=== PATIENT | female | born 1940 | race Caucasian/White ===

== ENCOUNTER 2017-01-02 14:01 | Emergency (ER) | payer OTHER ==
[~2017-01-02] VITALS: Ht 167.6 cm; Wt 70.0 kg
[2017-01-02 14:05] VITALS: Ht 167.6 cm; Wt 70.0 kg
[2017-01-02] MEDS ORDERED: SOD CHLORIDE 0.9% 1,000 ML IV STA ×2 (14:10→16:54)
[2017-01-02] MEDS ORDERED: DILTIAZEM 25 MG INJ IV ONE ×2 (14:30→15:30)
[2017-01-02 14:32] LABS: ADD SCAN DIFF NO
[2017-01-02 14:34] LABS: BASOPHIL # 0.1 10^3/ul (0.0-0.1); BASOPHILS % 0.5 % (0.0-2.0); EOSINOPHILS # 0.2 10^3/ul (0.0-0.5); EOSINOPHILS % 2.1 % (0.0-7.0); HEMATOCRIT 36.6 % (37.0-47.0); HEMOGLOBIN 12.5 g/dl (12.0-16.0); LYMPHOCYTES % 21.5 % (15.0-51.0); MEAN CORPUSCULAR HGB CONC 34.2 g/dl (32.0-37.0); MEAN CORPUSCULAR VOLUME 87.8 fl (82.0-101.0); MEAN PLATELET VOLUME 11.6 fl (7.4-10.4); MONOCYTE # 0.9 10^3/ul (0.3-0.9); MONOCYTES % 9.5 % (0.0-11.0); PLATELET COUNT 200 10^3/UL (140-415); RED BLOOD COUNT 4.17 10^6/ul (4.20-5.40); RED CELL DISTRIBUTION WIDTH 13.7 % (11.5-14.5); WHITE BLOOD COUNT 9.1 10^3/ul (4.8-10.8)
[2017-01-02 14:49] LABS: INR 1.16; PARTIAL THROMBOPLASTIN TIME 31.3 Sec (25.0-35.0); PROTIME 14.8 Sec (12.2-14.2); PT RATIO 1.2
[2017-01-02 14:50] LABS: CALCIUM 8.9 mg/dl (8.4-10.2); CREATININE 2.07 mg/dl (0.44-1.00); POTASSIUM 3.3 mmol/L (3.5-5.1)
[2017-01-02] MEDS ORDERED: POTASSIUM CHLORIDE (SR) 10 MEQ TAB PO ONE (15:00)
[2017-01-02 15:03] LABS: TROPONIN-I 0.02 ng/ml (0.00-0.12)
--- NOTE | 2017-01-02 15:17 | RADRPT ---
PROCEDURE: XR 1 view Chest. CLINICAL INDICATION: Chest pain. TECHNIQUE: Portable Single frontal view of the chest was obtained. COMPARISON: There are no similar studies submitted for comparison. FINDINGS: The heart is normal in size. There are mild aortic calcifications. There is no focal consolidation. There is no pleural effusion. No pneumothorax is identified. The osseous structures are intact. Surgical clips are noted within the right axilla. There is mild t o moderate dextro thoracolumbar scoliosis. IMPRESSION: No evidence for acute cardiopulmonary disease. Aortic calcifications. Further findings as detailed above. RPTAT: PP .Cuong Mitchell MD, Date Time Electronically viewed and signed by .Cuong Mitchell MD, on 01/02/2017 15:17 .F/
[2017-01-02] MEDS ORDERED: VALS1TAB74 PO (15:47)
[2017-01-02] MEDS ORDERED: GABA-526 PO (15:48)
[2017-01-02] MEDS ORDERED: SOD CHLORIDE 0.9% 1,000 ML IV SCH (16:08)
--- NOTE | 2017-01-02 16:17 | ERA ---
ER Documentation Chief Complaint Date/Time DATE: 01/02/17 TIME: 16:13 Chief Complaint NON-TRAUMATIC SYNCOPE THIS AFTERNOON HPI This is a 76-year-old female presents to the emergency room for evaluation of heart palpitations and syncopal episode. The patient states that she was at a restorationist event and states that she woke up and was on the ground. She does not remember fainting. She is complaining of heart palpitations and does state she has a history of atrial fibrillation. The patient denies being on any antiarrhythmic medication and denies being on any blood thinners. She denies any shortness of breath at this time ROS All systems reviewed and are negative except as per history of present illness. Medications Home Meds Reported Medications Gabapentin* (Gabapentin*) 600 Mg Tablet, 600 MG PO BID, #60 TAB 01/02/17 Valsartan-Hydrochlorothiazide (Valsartan-HCTZ) 80-12.5 Mg Tablet, 1 TAB PO DAILY , #30 TAB 01/02/17 Allergies Allergies: Coded Allergies: No Known Allergy (Unverified , 01/02/17) Physical Exam Vitals Vital Signs Date Time Temp Pulse Resp B/P Pulse Ox O2 Delivery O2 Flow Rate FiO2 01/02/17 14:05 97.9 150 20 98/47 94 Physical Exam INITIAL VITAL SIGNS: Reviewed by me GENERAL: The patient is well developed and appropriate for usual state of health in no apparent distress HEENT: Pupils equal, round, and reactive to light. EOMI. There is no scleral icterus. NECK: C-spine is soft and supple, there is no meningismus. There is no cervical lymphadenopathy. LUNGS: Clear to auscultation bilaterally. There are no rales, wheezes or rhonchi. HEART: Irregularly irregular rhythm, no murmurs, clicks, rubs or gallops. ABDOMEN: Soft, non-tender, non-distended. There are bowel sounds in all four quadrants. No rebound or guarding. EXTREMITIES: There is no peripheral cyanosis or edema. No focal swelling or erythema. NEUROLOGICAL: The patient moves all four extremities with 5/5 strength. Cranial nerves II - XII are intact. Normal gait. Alert and oriented SKIN: There is no apparent rash or petechiae. HEME/LYMPHATIC: There is no evidence of excessive bruising or lymphedema. PSYCHIATRIC: The patient does not appear anxious or depressed. Result Diagram: 6/15/17 1420 01/02/17 1420 Results 24 hrs Laboratory Tests Test 01/02/17 14:20 White Blood Count 9.110^3/ul Red Blood Count 4.1710^6/ul Hemoglobin 12.5g/dl Hematocrit 36.6% Mean Corpuscular Volume 87.8fl Mean Corpuscular Hemoglobin 30.0pg Mean Corpuscular Hemoglobin Concent 34.2g/dl Red Cell Distribution Width 13.7% Platelet Count 16844^3/UL Mean Platelet Volume 11.6fl Neutrophils % 66.0% Lymphocytes % 21.5% Monocytes % 9.5% Eosinophils % 2.1% Basophils % 0.5% Nucleated Red Blood Cells % 0.0/100WBC Neutrophils # 6.010^3/ul Lymphocytes # 2.010^3/ul Monocytes # 0.910^3/ul Eosinophils # 0.210^3/ul Basophils # 0.110^3/ul Nucleated Red Blood Cells # 0.010^3/ul Prothrombin Time 14.8Sec Prothrombin Time Ratio 1.2 INR International Normalized Ratio 1.16 Activated Partial Thromboplast Time 31.3Sec Sodium Level 142mmol/L Potassium Level 3.3mmol/L Chloride Level 109mmol/L Carbon Dioxide Level 24mmol/L Anion Gap 12 Blood Urea Nitrogen 26mg/dl Creatinine 2.07mg/dl Glucose Level 168mg/dl Calcium Level 8.9mg/dl Troponin I 0.020ng/ml B-Type Natriuretic Peptide 764PG/ML Current Medications Medications (Trade) Dose Ordered Sig/Minoo Route PRN Reason Start Time Stop Time Status Last Admin Dose Admin Sodium Chloride (NS) 1,000 ml @ 1,000 mls/hr Q1H STAT IV 01/02/17 14:10 01/02/17 15:09 DC 01/02/17 14:41 Diltiazem HCl (Cardizem Iv) 10 mg ONCE ONCE IV 01/02/17 14:30 01/02/17 14:35 DC 01/02/17 14:42 Potassium Chloride (Klor-Con 10) 30 meq ONCE ONCE PO 01/02/17 15:00 01/02/17 15:01 DC Diltiazem HCl 20 mg 20 mg ONCE ONCE IV 01/02/17 15:30 01/02/17 15:31 DC 01/02/17 15:14 Sodium Chloride (NS) 1,000 ml @ 80 mls/hr [id number] IV 01/02/17 16:08 01/03/17 04:37 Ondansetron HCl (Zofran Inj) 4 mg ER BRIDGE PRN IV NAUSEA AND/OR VOMITING 01/02/17 16:30 01/03/17 16:29 Acetaminophen (Tylenol Tab) 650 mg ER BRIDGE PRN PO MILD PAIN/FEVER 01/02/17 16:30 01/03/17 16:29 Procedures/MDM EKG: Rate/Rhythm: A. fib with RVR QRS, ST, T-waves: [No changes consistent w/ acute ischemia] Impression: Atrial fibrillation with rapid ventricular response EKG: #2 Rate/Rhythm: Atrial fibrillation with sinus arrhythmia QRS, ST, T-waves: [No changes consistent w/ acute ischemia] Impression: Atrial fibrillation with sinus arrhythmia Chest X-ray 1V Interpreted by me: Soft Tissue: No acute abnormalities Bones: No acute abnormalities Mediastinum/Cardiac Silhouette/Lungs: [No acute abnormalities] This 76-year-old female presents to the emergency room for evaluation of heart palpitations and syncope. When I evaluated her she did have a heart rate of 150s beats per minute and was in atrial fibrillation with rapid ventricular response. The patient was given 10 mg of Cardizem with no effect on her heart rate whatsoever. Patient was then given 20 mg of Cardizem and the patient did have a decrease in her heart rate to 84 bpm. Her potassium was 3.3 and she did have potassium supplemented with 30 mg once by mouth. Her blood pressure is stable at this time. Her second EKG does show a sinus arrhythmia with a positive cardiac activity consistent with sick sinus syndrome. This patient will be placed in for admission at this time for cardiac evaluation under the care of Dr. Granger. Cardiac Critical Care: Excluding all billable procedures Time: 44 minutes Treatments/Evaluations: Close monitoring for dangerous arrhythmia and cardiovascular collapse, while treating with advance cardiac medications and techniques. Departure Diagnosis: Primary Impression: Atrial fibrillation with rapid ventricular response Additional Impressions: Syncope Sick sinus syndrome Renal insufficiency Condition: Stable MIGUELINA SNIDER DO Jan 02, 2017 16:17
[2017-01-02] MEDS ORDERED: ACETAMINOPHEN 325 MG TAB PO PRN (16:30)
[2017-01-02] MEDS ORDERED: ONDANSETRON 4 MG INJ IV PRN (16:30)
[2017-01-02 17:00] VITALS: BP 139/62; PULSE 66; RESP 18
[2017-01-02] MEDS ORDERED: DILTIAZEM (CD) 120 MG CAP PO SCH (17:00)
[2017-01-02] MEDS ORDERED: DILTIAZEM (CD) 120 MG CAP PO ONE (17:00)
--- NOTE | 2017-01-02 17:00 | CONS ---
Date/Time of Note Date/Time of Note DATE: 01/02/17 TIME: 16:51 Assessment/Plan Assessment/Plan Additional Assessment/Plan Paroxysmal atrial flutter/fibrillation, currently sinus rhythm History of hypertension Acute kidney disease Hypokalemia -Initial ECG does demonstrate evidence of tachyarrhythmia most likely atrial flutter. After IV Cardizem, patient with pauses but converted to sinus rhythm. Currently with sinus rhythm in the 60s on telemetry. Laboratory studies does demonstrate evidence of possible hypovolemia as well as hypokalemia. Patient does admit to being out in the warm weather and is taking a diuretic for antihypertensive. Would hold diuretic at the current time, give IV fluids, supplement potassium to maintain above 4.0. Check echocardiogram. Would start Cardizem p.o. in the interim. Given her age and risk factors, patient would benefit from anticoagulation for thromboembolic protection. Consultation Date/Type/Reason Admit Date/Time Type of Consultation: cv Reason for Consultation Palpitations Hx of Present Illness This is a 76-year-old female with past medical history of atrial fibrillation, hypertension who unfortunately is homeless and living out of her car. Today, patient was at an outdoor event. She tells me was very hot and she was quite sweaty and fatigued. At one point, she became lightheaded and felt like she was going to pass out. She was having palpitations during this episode. She was brought to the emergency room for evaluation. Patient was found to be a tachyarrhythmia and was given IV Cardizem. Patient was noted to have some pauses with IV Cardizem and then did convert to sinus rhythm. She feels much better now. She denies any dizziness or lightheadedness, shortness of breath or chest pain. She denies any exertional chest pain or shortness of breath prior to this episode. She does note she has a history of atrial fibrillation but denies being on any anticoagulants. She tells me she does take a medication for hypertension. 12 point review of systems was performed with all pertinent positives and negatives mentioned above and all else is negative Past Medical History Atrial fibrillation Breast cancer Medical History: hypertension Past Surgical History Mastectomy Family History Significant Family History: no pertinent family hx Social History Alcohol Use: none Smoking Status: Never smoker Drug Use: none Other Social History Lives in her car Exam/Review of Systems Vital Signs Vitals Vital Signs Date Time Temp Pulse Resp B/P Pulse Ox O2 Delivery O2 Flow Rate FiO2 01/02/17 14:05 97.9 150 20 98/47 94 Exam No apparent distress Constitutional: alert, oriented Head: normocephalic Neck: supple Respiratory: clear to auscultation, normal air movement Cardiovascular: other (S1-S2 heard), regular rate and rhythm Gastrointestinal: bowel sounds, non-tender, other (No guarding), soft Extremities: edema (Trace) Results Result Diagram: 01/02/17 1420 01/02/17 1420 Results 24 hrs Laboratory Tests Test 01/02/17 14:20 White Blood Count 9.1 Red Blood Count 4.17 L Hemoglobin 12.5 Hematocrit 36.6 L Mean Corpuscular Volume 87.8 Mean Corpuscular Hemoglobin 30.0 Mean Corpuscular Hemoglobin Concent 34.2 Red Cell Distribution Width 13.7 Platelet Count 200 Mean Platelet Volume 11.6 H Neutrophils % 66.0 Lymphocytes % 21.5 Monocytes % 9.5 Eosinophils % 2.1 Basophils % 0.5 Nucleated Red Blood Cells % 0.0 Neutrophils # 6.0 Lymphocytes # 2.0 Monocytes # 0.9 Eosinophils # 0.2 Basophils # 0.1 Nucleated Red Blood Cells # 0.0 Prothrombin Time 14.8 H Prothrombin Time Ratio 1.2 INR International Normalized Ratio 1.16 Activated Partial Thromboplast Time 31.3 Sodium Level 142 Potassium Level 3.3 L Chloride Level 109 Carbon Dioxide Level 24 Anion Gap 12 Blood Urea Nitrogen 26 H Creatinine 2.07 H Glucose Level 168 Calcium Level 8.9 Troponin I 0.020 B-Type Natriuretic Peptide 764 H Medications Medications Current Medications Sodium Chloride (NS) 1,000 ml @ 80 mls/hr [id number] IV ; Start 01/02/17 at 16:08 ; Stop 01/03/17 at 04:37 Procedures Procedures Initial ECG demonstrates atrial fibrillation/flutter with rapid ventricular rates, nonspecific STT wave abnormalities Current ECG demonstrates sinus rhythm, normal QRS duration, nonspecific STT wave abnormalities Farhan Walters DO Jan 02, 2017 17:00
[2017-01-02] MEDS ORDERED: DILT240C79 PO (17:51)
[2017-01-03] MEDS ORDERED: DILT120C77 PO (14:26)
[2017-01-03] MEDS ORDERED: APIX5TAB PO (14:26)
== END 2017-01-02 18:33 | disposition left against medical advice (07) ==
LOC: E/R 14:01
DX: I48.91 Unspecified atrial fibrillation (principal); I49.5 Sick sinus syndrome; N28.9 Disorder of kidney and ureter, unspecified
CPT/HCPCS: 71010; 80048; 83735; 83880; 84484; 85025; 85610; 85730; 93005; J7030; 36415; 96374; 96376

== ENCOUNTER 2017-01-02 20:00 | Inpatient (IN) | payer OTHER ==
[~2017-01-02] VITALS: Ht 167.6 cm; Wt 77.3 kg
[~2017-01-02 20:00] MED LIST: DILT240C79 PO; GABA-526 PO; VALS1TAB74 PO
--- NOTE | 2017-01-02 20:40 | ERA ---
ER Documentation Chief Complaint Date/Time DATE: 01/02/17 TIME: 20:37 Chief Complaint palpitations, came in this afternoon HPI This is a 76-year-old female presents to the emergency room for evaluation of palpitations. The patient was evaluated by myself earlier in afternoon and did leave AGAINST MEDICAL ADVICE to fix her car and get her belongings together. The patient has returned. She states her palpitations have improved. The patient was diagnosed with tachybradycardia dysrhythmia and sick sinus syndrome. She was evaluated by cardiology and recommendation was made for the patient to stay in the hospital for evaluation however she left AGAINST MEDICAL ADVICE and now returns. No new complaints at this time ROS All systems reviewed and are negative except as per history of present illness. Medications Home Meds Active Scripts Diltiazem Hcl* (Cardizem CD*) 240 Mg Cap.sr.24h, 120 MG PO DAILY, #15 CAP Prov:MIGUELINA SNIDER 01/02/17 Reported Medications Gabapentin* (Gabapentin*) 600 Mg Tablet, 600 MG PO BID, #60 TAB 01/02/17 Valsartan-Hydrochlorothiazide (Valsartan-HCTZ) 80-12.5 Mg Tablet, 1 TAB PO DAILY , #30 TAB 01/02/17 Allergies Allergies: Coded Allergies: No Known Allergy (Unverified , 01/02/17) PMhx/Soc History of Surgery: Yes Anesthesia Reaction: No Hx Neurological Disorder: No Hx Respiratory Disorders: No Hx Cardiac Disorders: Yes (dysrthmia) Hx Psychiatric Problems: No Hx Miscellaneous Medical Probl: No Hx Alcohol Use: No Hx Substance Use: No Hx Tobacco Use: No Physical Exam Vitals Vital Signs Date Time Temp Pulse Resp B/P Pulse Ox O2 Delivery O2 Flow Rate FiO2 01/02/17 20:42 99.0 17 123/61 95 Room Air 01/02/17 20:25 99.5 76 20 117/56 95 Physical Exam INITIAL VITAL SIGNS: Reviewed by me GENERAL: The patient is well developed and appropriate for usual state of health in no apparent distress HEENT: Pupils equal, round, and reactive to light. EOMI. There is no scleral icterus. NECK: C-spine is soft and supple, there is no meningismus. There is no cervical lymphadenopathy. LUNGS: Clear to auscultation bilaterally. There are no rales, wheezes or rhonchi. HEART: Irregularly irregular rhythm, no murmurs, clicks, rubs or gallops. ABDOMEN: Soft, non-tender, non-distended. There are bowel sounds in all four quadrants. No rebound or guarding. EXTREMITIES: There is no peripheral cyanosis or edema. No focal swelling or erythema. NEUROLOGICAL: The patient moves all four extremities with 5/5 strength. Cranial nerves II - XII are intact. Normal gait. Alert and oriented SKIN: There is no apparent rash or petechiae. HEME/LYMPHATIC: There is no evidence of excessive bruising or lymphedema. PSYCHIATRIC: The patient does not appear anxious or depressed. Procedures/MDM This 76-year-old female persons to the emergency room for evaluation of palpitations. I did evaluate this patient earlier in the afternoon and admitted this patient for A. fib with RVR and tachybradycardia dysrhythmia. The patient was seen by cardiology and the recommendation was made for the patient to stay in the hospital for further evaluation. This patient did leave AGAINST MEDICAL ADVICE because she had to gather her belongings and move her car. She returned again today for admission after moving her car and gathering her belongings. EKG does not show A. fib with RVR at this time however given her diagnosis of tachybradycardia dysrhythmia this patient will be placed in for admission under regal physician, Dr. Pappas. EKG: Rate/Rhythm: [Normal Sinus Rhythm] QRS, ST, T-waves: [No changes consistent w/ acute ischemia] Impression: [No evidence of ischemia or arrhythmia] Departure Diagnosis: Primary Impression: Palpitations Additional Impression: Tachy-farzaneh syndrome Condition: MIGUELINA Gandhi DO Jan 02, 2017 20:40
[2017-01-02] MEDS ORDERED: ONDANSETRON 4 MG INJ IV PRN (21:00)
[2017-01-02] MEDS ORDERED: ACETAMINOPHEN 325 MG TAB PO PRN (21:00)
[2017-01-02 22:29] VITALS: TEMP 98.6
[2017-01-02 23:56] VITALS: PULSE 66
[2017-01-03] VITALS (9 sets, daily range): BP systolic 120–163; BP diastolic 52–82; PULSE 56–67; RESP 16–19; Ht 167.6 cm; Wt 77.3 kg
[2017-01-03] MEDS ORDERED: ONDANSETRON 4 MG INJ IV PRN (01:00)
[2017-01-03] MEDS ORDERED: ZOLPIDEM 5 MG TAB PO PRN (01:00)
[2017-01-03] MEDS ORDERED: ACETAMINOPHEN 325 MG TAB PO PRN (01:00)
[2017-01-03] MEDS ORDERED: POTASSIUM CHLORIDE 250 ML IVPB ONE (01:30)
[2017-01-03] MEDS ORDERED: POTASSIUM CHLORIDE (SR) 20 MEQ TAB PO ONE (01:30)
[2017-01-03 07:07] LABS: ADD SCAN DIFF NO
[2017-01-03 07:27] LABS: BASOPHILS % 0.5 % (0.0-2.0); EOSINOPHILS # 0.4 10^3/ul (0.0-0.5); EOSINOPHILS % 4.2 % (0.0-7.0); HEMATOCRIT 35.1 % (37.0-47.0); HEMOGLOBIN 11.3 g/dl (12.0-16.0); LYMPHOCYTES # 2.2 10^3/ul (0.8-2.9); MEAN CORPUSCULAR HEMOGLOBIN 29.8 pg (29.0-33.0); MEAN CORPUSCULAR HGB CONC 32.2 g/dl (32.0-37.0); MEAN CORPUSCULAR VOLUME 92.6 fl (82.0-101.0); MEAN PLATELET VOLUME 11.6 fl (7.4-10.4); MONOCYTE # 0.9 10^3/ul (0.3-0.9); NEUTROPHIL # 5.1 10^3/ul (1.6-7.5); NEUTROPHILS % 58.8 % (39.0-77.0); PLATELET COUNT 144 10^3/UL (140-415); RED BLOOD COUNT 3.79 10^6/ul (4.20-5.40); RED CELL DISTRIBUTION WIDTH 14.3 % (11.5-14.5); WHITE BLOOD COUNT 8.6 10^3/ul (4.8-10.8)
[2017-01-03 08:04] LABS: ALBUMIN 3.3 g/dl (3.3-4.9); ALBUMIN/GLOBULIN RATIO 1.43; CALCIUM 8.6 mg/dl (8.4-10.2); CHOL/HDL RATIO 2.5 RATIO; CREATININE 1.26 mg/dl (0.44-1.00); MAGNESIUM 1.9 mg/dl (1.7-2.5); POTASSIUM 4.5 mmol/L (3.5-5.1); TOTAL PROTEIN 5.6 g/dl (6.1-8.1)
[2017-01-03] MEDS ORDERED: ASPIRIN 81 MG TAB PO SCH (09:00)
[2017-01-03] MEDS ORDERED: DILTIAZEM (CD) 240 MG CAP PO SCH (09:00)
[2017-01-03] MEDS: GABAPENTIN 300 MG CAP PO SCH ×2 (09:36→20:32)
[2017-01-03] MEDS ORDERED: MAGNESIUM SULFATE 1 GM/D5W 100 ML IVPB ONE (10:00)
--- NOTE | 2017-01-03 13:33 | RADRPT ---
Echocardiogram Report Patient Name: WOLFGANG LAUGHLIN Gender: Female Date: 1940 Study Date: 03-Jan-2017 [employer] Teacher: Viji Wilks [facility] Location: [facility] Ref. Physician: TEZ XAVIER Quality: Good Procedures: Transthoracic echocardiogram with complete 2D, M-Mode, and doppler examination. Indications: Tachycardia. 2D/M Mode Doppler Measurement Value Normal Ranges Measurement Value Normal Ranges LVIDd 2D 4.3 3.5 - 5.6 cm AV Peak Artur 1.2 m/sec LVIDs 2D 2.5 2.1 - 4.1 cm AV Peak PG 6.0 mmHg FS 2D 42.4 % LVOT Peak Artur 0.9 m/sec LVPWd 2D 1.3 0.6 - 1.1 cm LVOT Peak PG 3.0 mmHg IVSd 2D 1.4 0.6 - 1.1 cm MV E Peak Artur 1.0 m/sec IVS/LVPW 2D 1.1 MV A Peak Artur 0.5 m/sec AoR Diam 2D 3.1 2.0 - 3.7 cm MV E/A 2.1 LA/Ao 2D 1 0 - 1 MV Decel Time 243 msec EDV 2D 80.6 cm3 MV E/A 2.1 ESV 2D 15.4 cm3 TR Peak Artur 2.3 m/sec LA Dimen 2D 3.9 2.3 - 4.0 cm TR Peak PG 21.0 mmHg RVSP 24.0 mmHg Findings Left Ventricle: Normal left ventricular systolic function. Normal left ventricular cavity size. Moderate concentric left ventricular hypertrophy. Ejection fraction is visually estimated at 65 %. Abnormal Diastolic Function. Right Ventricle: Normal right ventricular size. Normal right ventricular systolic function. Left Atrium: There is mild enlargement of left atrium. Right Atrium: The right atrium is normal in size. Mitral Valve: Mitral valve leaflets appear mildly thickened. Mild mitral annular calcification. Mild mitral valve regurgitation. Aortic Valve: Normal appearance of the aortic valve. No significant aortic stenosis or insufficiency. Tricuspid Valve: Normal appearance of the tricuspid valve. Estimated peak PA systolic pressure 24 mmHg. There is trace tricuspid regurgitation. Pulmonic Valve: Normal pulmonic valve appearance. Pericardium: Trivial pericardial effusion. Aorta: Normal aortic root. IVC: Normal size and normal respiratory collapse consistent with normal right atrial pressure. Conclusions Normal left ventricular systolic function. Normal left ventricular cavity size. Moderate concentric left ventricular hypertrophy. Ejection fraction is visually estimated at 65 %. Abnormal Diastolic Function. Normal right ventricular size. Normal right ventricular systolic function. There is mild enlargement of left atrium. The right atrium is normal in size. Mild mitral valve regurgitation. No significant valvular stenosis or regurgitation seen of remaining visualized valves. Trivial pericardial effusion. Electronically Signed By: Farhan Walters 03-Jan-2017 13:32:15 -0700 Patient Name: WOLFGANG LAUGHLIN Study Date: 03-Jan-2017 [id number]
--- NOTE | 2017-01-03 13:39 | CONS ---
Date/Time of Note Date/Time of Note DATE: 01/03/17 TIME: 13:36 Assessment/Plan Assessment/Plan Additional Assessment/Plan Of note, patient left AMA yesterday and came back, refer to previous visit for initial consult note Paroxysmal atrial flutter/fibrillation, currently sinus rhythm History of hypertension [place] Preserved ejection fraction Mild mitral valve regurgitation -Patient remains in sinus rhythm. TSH normal. Left ventricular systolic ejection fraction within normal limits with evidence of left ventricular hypertrophy. I did discuss with the patient the increased risk of thromboembolic events in the setting of atrial fibrillation, as well as her risk factors of age, left ventricular hypertrophy and hypertension. Recommendations are for anticoagulation. I did discuss the risks of bleeding and patient understands and agrees. Would continue Cardizem 120 mg daily and start Eliquis. DC planning Consultation Date/Type/Reason Admit Date/Time Jan 02, 2017 at 20:47 Initial Consult Date Type of Consultation: cv 24 HR Interval Summary Free Text/Dictation Patient denies shortness of breath, chest pain, palpitations or dizziness. Feeling much better Exam/Review of Systems Vital Signs Vitals Vital Signs Date Time Temp Pulse Resp B/P Pulse Ox O2 Delivery O2 Flow Rate FiO2 01/03/17 12:33 67 01/03/17 11:25 98.0 19 136/64 97 01/03/17 04:30 Room Air Intake and Output 01/02/17 01/02/17 01/03/17 15:00 23:00 07:00 Intake Total 120 ml Balance 120 ml Exam No apparent distress Constitutional: alert, oriented Head: normocephalic Neck: supple Respiratory: clear to auscultation, normal air movement Cardiovascular: other (S1-S2 heard), regular rate and rhythm Gastrointestinal: bowel sounds, non-tender, soft Extremities: edema (Trace) Results Result Diagram: 01/03/17 0616 01/03/17 0615 Results 24 hrs Laboratory Tests Test 01/03/17 05:20 01/03/17 06:15 01/03/17 06:16 Thyroid Stimulating Hormone (TSH) 0.844 Sodium Level 147 H Potassium Level 4.5 Chloride Level 117 H Carbon Dioxide Level 24 Anion Gap 11 Blood Urea Nitrogen 18 Creatinine 1.26 H Glucose Level 110 # Calcium Level 8.6 Magnesium Level 1.9 Total Bilirubin 0.0 L Direct Bilirubin 0.00 Indirect Bilirubin 0.0 Aspartate Amino Transf (AST/SGOT) 25 Alanine Aminotransferase (ALT/SGPT) 23 Alkaline Phosphatase 43 Total Protein 5.6 L Albumin 3.3 Globulin 2.30 Albumin/Globulin Ratio 1.43 Triglycerides Level 61 Cholesterol Level 119 LDL Cholesterol, Calculated 60 HDL Cholesterol 47 Cholesterol/HDL Ratio 2.5 White Blood Count 8.6 Red Blood Count 3.79 L Hemoglobin 11.3 L Hematocrit 35.1 L Mean Corpuscular Volume 92.6 Mean Corpuscular Hemoglobin 29.8 Mean Corpuscular Hemoglobin Concent 32.2 Red Cell Distribution Width 14.3 Platelet Count 144 # Mean Platelet Volume 11.6 H Neutrophils % 58.8 Lymphocytes % 26.0 Monocytes % 10.0 Eosinophils % 4.2 Basophils % 0.5 Nucleated Red Blood Cells % 0.0 Neutrophils # 5.1 Lymphocytes # 2.2 Monocytes # 0.9 Eosinophils # 0.4 Basophils # 0.0 Nucleated Red Blood Cells # 0.0 Medications Medications Current Medications Diltiazem HCl (Cardizem Cd) 120 mg DAILY PO Last administered on 01/03/17 09: 36; Admin Dose 120 MG; Start 01/03/17 at 09:00 Gabapentin (Neurontin) 600 mg BID PO Last administered on 01/03/17 09:36; Admin Dose 600 MG; Start 01/03/17 at 09:00 Acetaminophen (Tylenol Tab) 650 mg Q6H PRN PO PAIN AND OR ELEVATED TEMP Last administered on 01/03/17 04:49; Admin Dose 650 MG; Start 01/03/17 at 01:00 Ondansetron HCl (Zofran Inj) 4 mg Q6H PRN IV NAUSEA AND/OR VOMITING; Start at 01:00 Zolpidem Tartrate (Ambien) 5 mg HS PRN PO INSOMNIA; Start 01/03/17 at 01:00 Apixaban (Eliquis) 5 mg BID PO ; Start 01/03/17 at 13:30 Farhan Walters DO Jan 03, 2017 13:39
[2017-01-03] MEDS: APIXABAN 5 MG TABLET PO SCH ×2 (13:59→20:32)
--- NOTE | 2017-01-03 14:22 | PDOCDIS ---
Discharge Instructions CONDITION Patient Condition: Stable HOME CARE INSTRUCTIONS: Special Diet: 2 GM NA DIET. ACTIVITY: Activity Restrictions: Slowly Increase Activity FOLLOW UP/APPOINTMENTS Appointments Follow up with PCP in 1 week Follow up with Cardiology in 1 to 2 weeks EVIE ROBERTSON Jan 03, 2017 14:22
[2017-01-03] MEDS ORDERED: DILT120C77 PO (14:26)
[2017-01-03] MEDS ORDERED: APIX5TAB PO (14:26)
--- NOTE | 2017-01-03 16:02 | HP ---
DATE OF ADMISSION: 01/02/2017 ADMITTING PHYSICIAN: Dr. Granger. MANAGER ENTERPRISE CONTENT MANAGEMENT ON THIS ADMISSION: Dr. Walters. CHIEF COMPLAINT ON ADMISSION: Palpitations and syncopal episode. HISTORY OF PRESENT ILLNESS: This is a 76-year-old female with history of chronic atrial fibrillatio n, status post TIA apparently a week ago at [facility], hypertension and previous histo ry of breast cancer. She presented to the emergency department with complaint of palpitations and a syncopal episode. The patient unfortunately has very difficult social situation currently. As of 1 week ago, she became homeless. Apparently for the past few months, she has been struggling in ter ms of income as she lost her job and she has been responsible for her brother who had multiple medic al issues and recently on 12/26/2016, he committed suicide by hanging himself. After that, the randi ent has been having a difficult time. This past week, she was admitted at [facility]. A pparently, she had a stroke from what she is reporting likely a TIA. She was also diagnosed with a trial fibrillation from what she is reporting, but has not been able to take any of her medications. She was admitted at [facility] for 4 days and was discharged approximately 4 days ago. After her discharge, she went to her primary care physician and did tell him the difficult situatio n that has been happening. Apparently, she was very emotional at that time. The primary care physi deisy did call [employer] likely because he was concerned that the patient may harm herself. Patient repor ts that she was held on a 72-hour hold. She has seen a psychiatrist twice during that hold, police department apparently and was finally released after 72 hours. After release, she has been living i n her car basically over the past 48 hours. In the meantime, yesterday, she was at a critical access hospital er where she did receive food and a cane and subsequently had these episodes of heart palpitations a nd reports a syncopal episode at that time. The patient reports that she has not been able to take any of her medication because either she cannot afford them or she was in this situation to fill the prescription. Yesterday, she was seen here at [facility], was found to be in atrial fi brillation and atrial flutter converted with Cardizem after a brief pause. She was evaluated by car diologrony, Dr. Walters and admission was recommended. The patient left AMA because she had to deal wit h her car apparently but did represent in the ER for admission. Upon admission, she remains in sinu s rhythm with Cardizem on board, but she will need to continue. Given the fact that she has been in atrial fibrillation and apparently now she is reporting possibly either TIA or CVA admission 1 week ago at [facility]. She definitely does need anticoagulation. I have checked with her insurance and Eliquis has been approved. Therefore, she will be discharged on Eliquis. I have radha ked to the patient this morning. She denies any chest pain, shortness of breath or palpitations at this time. She is concerned about her discharge due to the fact that again she is homeless at this point. I have told her high school social studies teacher will talk to her and offer her jail placement. If she do es not want jail, we can try to get a prison facility placement, but she is very relucta nt to nursing homes, but from the medical standpoint, she is stable for discharge today. ALLERGIES: NO KNOWN ALLERGIES. PAST MEDICAL HISTORY: 1. History of breast cancer approximately 2 years ago, status post mastectomy. The patient reports that she also received radiation therapy. She had one dose of chemotherapy, had allergic reaction to it and it was discontinued at that time. She cannot remember if she was given tamoxifen afterwar ds but it sounds like she may have been noncompliant at that time. 2. Hypertension. 3. Atrial fibrillation. 4. Possibly recent transient ischemic attack versus cerebrovascular accident. 5. Low back pain with reported disk disease and peripheral neuropathy of previous sciatica. PAST SURGICAL HISTORY: 1. Status post bilateral mastectomy. 2. Status post intussusception surgery as a child. 3. Status post skin tumor removal from her abdomen from her neck area. SOCIAL HISTORY: The patient is currently homeless as of 1 week ago. Prior to that, she was living since 08/2016 from [facility] and she recently lost her brother to suicide a week ago. She does not drink alcohol. She does not smoke tobacco and does not use IV drugs. She did also lose her torsten b in the past 6 months and also lost income. REVIEW OF SYSTEMS: As per HPI. OUTPATIENT MEDICATIONS: 1. Cardizem-CD 120 mg p.o. daily. 2. Valsartan/hydrochlorothiazide 80/12.5 one tab p.o. daily. 3. Gabapentin 600 mg p.o. b.i.d. PHYSICAL EXAMINATION: VITAL SIGNS: Temperature is 98.0, heart rate of 67, sinus rhythm, respiratory rate of 19, blood pre ssure is 136/64. The patient is saturating 97% on room air. GENERAL: She is alert and oriented x4 in no acute distress currently, but very emotional. HEENT: Pupils are equally round and reactive to light. Extraocular muscles are intact. Anicteric sclerae. NECK: No JVD, no thyromegaly noted. HEART: Regular rate and rhythm. No murmur, rubs, or gallops. She is in sinus rhythm. LUNGS: Clear to auscultation bilaterally. ABDOMEN: Soft, nontender, nondistended. Bowel sounds are present. EXTREMITIES: No edema, clubbing or cyanosis. NEUROLOGIC: She is moving all 4 extremities. She is ambulating to the bathroom without assistance or a cane. LABORATORY DATA: White blood cell count is 8.6, hemoglobin 11.3, hematocrit 35.1, platelet count of 144. Chemistry with a sodium of 147, potassium 4.5, chloride 117, bicarbonate 24, BUN 18, creatini ne 1.26, glucose of 110, glucose of 8.6, magnesium 1.9, AST 25, ALT 23, alkaline phosphatase 43, tot al bilirubin 0, total protein 5.6, albumin 3.3, triglycerides 61, cholesterol 119, LDL 60, HDL 47. TSH of 0.844, free T4 of 1.09. INR is 1.16. PT 31.3, PTT 14.8. RADIOLOGICAL DATA: Chest x-ray shows no acute cardiopulmonary disease. EKG and telemetry shows sinus rhythm currently. ASSESSMENT AND PLAN: This is a 76-year-old female with: 1. Chronic atrial fibrillation, status post episode of rapid ventricular rate, now in sinus rhythm. She will be discharged home or to a jail or to a prison facility on Cardizem-CD 120 mg p.o. daily along with Eliquis 5 mg p.o. b.i.d. 2. 2-D echocardiogram is stable. Cardiac enzymes are negative. She needs to follow up with her ca rdiologist in 1 to 2 weeks. 3. Hypertension. She will be maintained on Cardizem-CD, which is the only blood pressure medicatio n she may need. Valsartan/hydrochlorothiazide has been discontinued. 4. Peripheral neuropathy with degenerative disk disease. Continue gabapentin. 5. Prerenal azotemia seems to be resolved at this point. The patient is to stay hydrated. 6. History of breast cancer status post bilateral mastectomy, stable. 7. Prophylaxis. The patient now on Eliquis and she is ambulatory and she is tolerating p.o. very w ell. DISPOSITION: She has been admitted to telemetry overnight. She will be discharged today. Social s ervices have been consulted regarding her homelessness in order to assist with placement in a shelte r. If that fails, she may need to be placed in a prison facility if possible. Dictated By: EVIE NAVAS/DINESH Conf#: [id number] DID#: [id number]
== END 2017-01-03 22:30 | DRG 309 ==
LOC: E/R 20:00 → TEL 20:47 → UNDODISIN 01-03 16:40
PROVIDERS: ADMIT Internal Medicine; ATTEND Internal Medicine
DX: I48.0 Paroxysmal atrial fibrillation (principal); N17.9 Acute kidney failure, unspecified; I49.5 Sick sinus syndrome; G62.9 Polyneuropathy, unspecified; I10 Essential (primary) hypertension; M51.37 Other intervertebral disc degeneration, lumbosacral region; Z90.13 Acquired absence of bilateral breasts and nipples; Z59.0 Homelessness; Z85.3 Personal history of malignant neoplasm of breast
CPT/HCPCS: 80053; 80061; 83735; 84439; 84443; 85025; 93306; J3475; J3480

== ENCOUNTER 2017-01-09 08:39 | Observation (INO) | payer OTHER ==
[~2017-01-09] VITALS: Ht 160 cm; Wt 74.7 kg
[~2017-01-09 08:39] MED LIST changes: +APIX5TAB PO; +DILT120C77 PO; -DILT240C79 PO; -VALS1TAB74 PO
[2017-01-09] MEDS ORDERED: NITROGLYCERIN 2% 1 GM OINT PKT TD STA (08:41)
[2017-01-09 08:56] LABS: ADD SCAN DIFF NO
[2017-01-09] MEDS ORDERED: NITROGLYCERIN (SL) 0.4 MG TAB SL PRN ×2 (09:00→14:00)
[2017-01-09 09:01] LABS: BASOPHIL # 0.1 10^3/ul (0.0-0.1); BASOPHILS % 0.6 % (0.0-2.0); EOSINOPHILS # 0.3 10^3/ul (0.0-0.5); EOSINOPHILS % 3.2 % (0.0-7.0); HEMATOCRIT 40.9 % (37.0-47.0); HEMOGLOBIN 13.9 g/dl (12.0-16.0); LYMPHOCYTES # 1.9 10^3/ul (0.8-2.9); LYMPHOCYTES % 22.4 % (15.0-51.0); MEAN CORPUSCULAR HEMOGLOBIN 30.2 pg (29.0-33.0); MEAN CORPUSCULAR VOLUME 88.9 fl (82.0-101.0); MEAN PLATELET VOLUME 10.6 fl (7.4-10.4); MONOCYTE # 0.9 10^3/ul (0.3-0.9); MONOCYTES % 11.1 % (0.0-11.0); NEUTROPHIL # 5.2 10^3/ul (1.6-7.5); NEUTROPHILS % 62.3 % (39.0-77.0); PLATELET COUNT 223 10^3/UL (140-415); RED CELL DISTRIBUTION WIDTH 13.8 % (11.5-14.5); WHITE BLOOD COUNT 8.4 10^3/ul (4.8-10.8)
[2017-01-09 09:14] LABS: PT RATIO 1.1
[2017-01-09 09:22] LABS: CALCIUM 9.4 mg/dl (8.4-10.2); CREATININE 1.01 mg/dl (0.44-1.00); POTASSIUM 3.9 mmol/L (3.5-5.1)
--- NOTE | 2017-01-09 09:32 | RADRPT ---
PROCEDURE: Chest x-ray CLINICAL INDICATION: Chest pain TECHNIQUE: Chest single view COMPARISON: 01/02/2017 FINDINGS: The heart is normal in size. The pulmonary vessels are normal in caliber. Lung volumes are low with mild right basilar atelectasis. Lungs otherwise clear. Costophrenic angles sharp. Surgical clips in the right axilla. The costophrenic angles are sharp. The visualized bony thorax is unremarkabl e. IMPRESSION: No acute cardiopulmonary disease. Low lung volumes RPTAT: HH .Christiano Vizcarra MD, Date Time Electronically viewed and signed by .Christiano Vizcarra MD, on 01/09/2017 09:32 .W/
[2017-01-09 09:33] LABS: TROPONIN-I 0.016 ng/ml (0.00-0.12)
[2017-01-09 09:34] LABS: CK-MB 1.04 ng/ml (0.0-2.4); TROPONIN-I 0.017 ng/ml (0.00-0.12)
[2017-01-09] MEDS ORDERED: ACETAMINOPHEN 325 MG TAB PO PRN ×2 (10:30→14:00)
[2017-01-09] MEDS ORDERED: ONDANSETRON 4 MG INJ IV PRN ×2 (10:30→14:00)
--- NOTE | 2017-01-09 11:02 | ERA ---
ER Documentation Chief Complaint Date/Time DATE: 01/09/17 TIME: 10:55 Chief Complaint Patient EDWIN with Code STEMI run HPI Patient is a 76-year-old female with hypertension who presents with chest pain. She was brought in by ambulance. She started with chest pain this morning at 6:20 AM was given nitroglycerin. The pain went away and came back at 6:25 AM and she was given nitroglycerin again. The pain went away and came back a third time and she was given nitroglycerin and this time the facility called 911. She was brought in by ambulance and was given aspirin nitroglycerin by paramedics. An EKG from the field showed a possible STEMI and a code STEMI was called from the field at 8:37 AM. She denies chest pain now. She denies shortness of breath. She said the pain was a dull ache across her chest prior to the nitroglycerin. Upon review of old medical records this is the patient's third visit to the ER since January 02, 2017. ROS All systems reviewed and are negative except as per history of present illness. Medications Home Meds Active Scripts Diltiazem Hcl* (Cardizem CD*) 120 Mg Cap.sr.24h, 120 MG PO DAILY for 30 Days, 3 Refills Prov:MARCELOToddMayelaJUANHAYDEE Mike 01/03/17 Apixaban* (Eliquis*) 5 Mg Tablet, 5 MG PO BID for 30 Days, TAB 3 Refills Prov:MARCELOToddMayelaJUANHAYDEE Mike 01/03/17 Reported Medications Gabapentin* (Gabapentin*) 600 Mg Tablet, 600 MG PO BID, #60 TAB 01/02/17 Discontinued Reported Medications Valsartan-Hydrochlorothiazide (Valsartan-HCTZ) 80-12.5 Mg Tablet, 1 TAB PO DAILY , #30 TAB 01/02/17 Discontinued Scripts Diltiazem Hcl* (Cardizem CD*) 240 Mg Cap.sr.24h, 120 MG PO DAILY, #15 CAP Prov:MIGUELINA NSIDER DO 01/02/17 Allergies Allergies: Coded Allergies: No Known Allergy (Unverified , 01/09/17) PMhx/Soc Positive for hypertension History of Surgery: No Anesthesia Reaction: No Hx Neurological Disorder: No Hx Respiratory Disorders: No Hx Cardiac Disorders: No Hx Psychiatric Problems: No Hx Miscellaneous Medical Probl: No Hx Alcohol Use: No Hx Substance Use: No Hx Tobacco Use: No Smoking Status: Never smoker FmHx Family History: coronary disease Physical Exam Vitals Vital Signs Date Time Temp Pulse Resp B/P Pulse Ox O2 Delivery O2 Flow Rate FiO2 01/09/17 10:20 98.7 100 16 166/114 100 Nasal Cannula 3.0 01/09/17 08:45 Nasal Cannula 2.0 01/09/17 08:44 Non Rebreather 5 01/09/17 08:39 98.3 107 20 140/82 100 Physical Exam Const: No acute distress Head: Atraumatic Eyes: Normal Conjunctiva ENT: Normal External Ears, Nose and Mouth. Neck: Full range of motion..~ No meningismus. Resp: Clear to auscultation bilaterally Cardio: Tachycardic rate without murmur Abd: Soft, non tender, non distended. Normal bowel sounds Skin: No petechiae or rashes Back: No midline or flank tenderness Ext: No cyanosis, or edema Neur: Awake and alert Psych: Normal Mood and Affect Result Diagram: 01/09/17 0848 01/09/17 0848 Results 24 hrs Laboratory Tests Test 01/09/17 08:48 White Blood Count 8.410^3/ul Red Blood Count 4.6010^6/ul Hemoglobin 13.9g/dl Hematocrit 40.9% Mean Corpuscular Volume 88.9fl Mean Corpuscular Hemoglobin 30.2pg Mean Corpuscular Hemoglobin Concent 34.0g/dl Red Cell Distribution Width 13.8% Platelet Count 68146^3/UL Mean Platelet Volume 10.6fl Neutrophils % 62.3% Lymphocytes % 22.4% Monocytes % 11.1% Eosinophils % 3.2% Basophils % 0.6% Nucleated Red Blood Cells % 0.0/100WBC Neutrophils # 5.210^3/ul Lymphocytes # 1.910^3/ul Monocytes # 0.910^3/ul Eosinophils # 0.310^3/ul Basophils # 0.110^3/ul Nucleated Red Blood Cells # 0.010^3/ul Prothrombin Time 14.6Sec Prothrombin Time Ratio 1.1 INR International Normalized Ratio 1.14 Activated Partial Thromboplast Time 34.0Sec Sodium Level 143mmol/L Potassium Level 3.9mmol/L Chloride Level 108mmol/L Carbon Dioxide Level 29mmol/L Anion Gap 10 Blood Urea Nitrogen 21mg/dl Creatinine 1.01mg/dl Glucose Level 109mg/dl Calcium Level 9.4mg/dl Creatine Kinase 33IU/L Creatine Kinase Index 3.2 Creatinine Kinase MB (Mass) 1.04ng/ml Troponin I 0.017ng/ml Current Medications Medications (Trade) Dose Ordered Sig/Minoo Route PRN Reason Start Time Stop Time Status Last Admin Dose Admin Nitroglycerin (Nitroglycerin 2% Oint) 1 inch ONCE STAT TD 01/09/17 08:41 01/09/17 08:43 DC 01/09/17 08:56 Nitroglycerin (Nitroglycerin (Sl Tab) 0.4 Mg) 1 tab Q5M UP TO 3 DOSES PRN SL CHEST PAIN 01/09/17 09:00 Ondansetron HCl (Zofran Inj) 4 mg ER BRIDGE PRN IV NAUSEA AND/OR VOMITING 01/09/17 10:30 01/10/17 10:29 Acetaminophen (Tylenol Tab) 650 mg ER BRIDGE PRN PO MILD PAIN/FEVER 01/09/17 10:30 01/10/17 10:29 Procedures/MDM EKG #1 read by me: Rate/Rhythm: Regular rate and rhythm at a normal rate Intervals: Normal Impression: No evidence of ischemia or arrhythmia EKG #2 read by me: Rate/Rhythm: Sinus tachycardia Intervals: Normal Impression: Sinus tachycardia with ST elevation in lead V2 but without reciprocal depressions Chest x-ray negative per radiology. Patient is a 76-year-old female with hypertension who presents with what appears to be tachybradycardia dysrhythmia. A code STEMI was called from the field at 8:37 AM and the patient arrived at 8:[address] Aldrich was called at 8:43 AM and I recheck to Dr. Oropeza 8:44 AM. At 9:15 AM the code STEMI was canceled per Dr. Aldrich after reviewing EKGs. I spoke with Dr. Barrientos who is covering for Dr. Oropeza who will see the patient in consultation. He has been to admit the patient to Dr. Granger as the patient has regal insurance to a telemetry bed. Initial troponin is within normal limits. I doubt pneumonia, pneumothorax, pulmonary embolism, or aortic dissection. Critical Care: Time: 45 minutes excluding all billable procedures. Treatments/Evaluations: Close monitoring and treatment of unstable vital signs, cardiorespiratory, and neurologic status, while maintaining tight balance of fluid, respiratory, and cardiac interventions. Departure Diagnosis: Primary Impression: Tachy-farzaneh syndrome Additional Impression: Chest pain Qualified Code: R07.9 - Chest pain, unspecified type Condition: WISAM Oden MD Jan 09, 2017 11:02
[2017-01-09 11:15] LABS: INR 1.14; PROTIME 14.6 Sec (12.2-14.2)
[2017-01-09 11:26] LABS: PARTIAL THROMBOPLASTIN TIME 33.8 Sec (25.0-35.0)
[2017-01-09] MEDS ORDERED: DOCUSATE SODIUM 100 MG CAP PO PRN (14:00)
[2017-01-09] MEDS ORDERED: MAGNESIUM HYDROXIDE 30ML CUP PO PRN (14:00)
[2017-01-09] MEDS ORDERED: BISACODYL 10 MG SUPP PR PRN (14:00)
[2017-01-09] MEDS ORDERED: NACL 0.9% 3 ML SYG IV SCH (14:00)
--- NOTE | 2017-01-09 15:24 | CONS ---
Date/Time of Note Date/Time of Note DATE: 01/09/17 TIME: 15:22 Assessment/Plan Assessment/Plan Additional Assessment/Plan Tachy-Farzaneh Syndrome Atypical chest pain Paroxysmal aflutter/afib > nsr HTN -Given multiple visits and tachy farzaneh, will add flecanide to keep in nsr -Continue av blockade -On anticoagulation -If fails medical therpay, would consider AV Ablation with PPM vs afib ablation -d/c asa Consultation Date/Type/Reason Admit Date/Time Hx of Present Illness Patient is a 76-year-old female with hypertension who presents with chest pain. She was brought in by ambulance. She started with chest pain this morning at 6:20 AM was given nitroglycerin. The pain went away and came back at 6:25 AM and she was given nitroglycerin again. The pain went away and came back a third time and she was given nitroglycerin and this time the facility called 911. She was brought in by ambulance and was given aspirin nitroglycerin by paramedics. An EKG from the field showed a possible STEMI and a code STEMI was called from the field at 8:37 AM. She denies chest pain now. She denies shortness of breath. She said the pain was a dull ache across her chest prior to the nitroglycerin. Upon review of old medical records this is the patient's third visit to the ER since January 02, 2017. She is currently stable with no acute ischemia by ekg and nromal troponin #1. Social History Smoking Status: Never smoker Exam/Review of Systems Vital Signs Vitals Vital Signs Date Time Temp Pulse Resp B/P Pulse Ox O2 Delivery O2 Flow Rate FiO2 01/09/17 12:32 98.6 97 18 134/101 100 Nasal Cannula 3.0 Results Result Diagram: 01/09/17 0848 01/09/17 0848 Results 24 hrs Laboratory Tests Test 01/09/17 08:48 White Blood Count 8.4 Red Blood Count 4.60 # Hemoglobin 13.9 # Hematocrit 40.9 Mean Corpuscular Volume 88.9 Mean Corpuscular Hemoglobin 30.2 Mean Corpuscular Hemoglobin Concent 34.0 Red Cell Distribution Width 13.8 Platelet Count 223 # Mean Platelet Volume 10.6 H Neutrophils % 62.3 Lymphocytes % 22.4 Monocytes % 11.1 H Eosinophils % 3.2 Basophils % 0.6 Nucleated Red Blood Cells % 0.0 Neutrophils # 5.2 Lymphocytes # 1.9 Monocytes # 0.9 Eosinophils # 0.3 Basophils # 0.1 Nucleated Red Blood Cells # 0.0 Prothrombin Time 14.6 H Prothrombin Time Ratio 1.1 INR International Normalized Ratio 1.14 Activated Partial Thromboplast Time 33.8 Sodium Level 143 Potassium Level 3.9 Chloride Level 108 Carbon Dioxide Level 29 Anion Gap 10 Blood Urea Nitrogen 21 H Creatinine 1.01 H Glucose Level 109 Calcium Level 9.4 Creatine Kinase 33 Creatine Kinase Index 3.2 Creatinine Kinase MB (Mass) 1.04 Troponin I 0.017 Medications Medications Current Medications Ondansetron HCl (Zofran Inj) 4 mg Q6H PRN IV NAUSEA AND/OR VOMITING; Start at 14:00 Aspirin (Aspirin) 81 mg DAILY PO ; Start 01/10/17 at 09:00 Nitroglycerin (Nitroglycerin (Sl Tab) 0.4 Mg) 1 tab Q5M PRN SL CHEST PAIN; Start 01/09/17 at 14:00 Acetaminophen (Tylenol Tab) 650 mg Q6H PRN PO PAIN LEVEL 1-3 OR FEVER; Start at 14:00 Docusate Sodium (Colace) 100 mg Q12H PRN PO CONSTIPATION; Start 01/09/17 at 14: 00 Magnesium Hydroxide (Milk Of Mag) 30 ml DAILY PRN PO CONSTIPATION; Start at 14:00 Bisacodyl (Dulcolax Supp) 10 mg DAILY PRN NC CONSTIPATION; Start 01/09/17 at 14 :00 Famotidine (Pepcid) 20 mg QHS PO ; Start 01/09/17 at 21:00 Apixaban (Eliquis) 5 mg BID PO ; Start 01/09/17 at 21:00 Gabapentin (Neurontin) 600 mg BID PO ; Start 01/09/17 at 21:00 ROSELYN PAYAN MD Jan 09, 2017 15:24
--- NOTE | 2017-01-09 16:18 | HP ---
DATE OF ADMISSION: 01/09/2017 RIGGER: Dr. Barrientos from cardiology. ADMITTING PHYSICIAN: Dr. Robertson CHIEF COMPLAINT ON ADMISSION: Chest pain and arrhythmia. HISTORY OF PRESENT ILLNESS: This is a 76-year-old female with hypertension and also chronic atrial fibrillation who was brought in from detention facility with reported chest pain. The patient is known to my service. She was discharged approximately 1 week ago to detention [facility] for placement. She has known chronic atrial fibrillation. She was placed on Cardizem and als o required Eliquis due to elevated CHADS score. The patient has been in a detention facility, was sent over today due to episode of chest pain. Apparently, the patient required 2 doses of nitr oglycerin with some improvement of her chest pain. EKG on the field showed possible ST elevation my ocardial infarction. Therefore, a code status was called. The patient was brought to the emergency department, she was evaluated by the ER and also by cardiology recreational sports director and the STEMI code was cance led at that time. This patient denies any shortness of breath. She reports a dull aching pain acro ss her chest. She denies nausea, vomiting, dizziness or shortness of breath. She is comfortable cu rrently. Her vital signs are stable except she is noted to have tachybrady syndrome. Her heart rat e has been varying from upper 80s [address] way to 170s. She will be maintained on Eliquis. I have discussed care of this patient with Dr. Barrientos, who was covering for Dr. Walters. He will most likel y put the patient on antiarrhythmic and discontinue the Cardizem at this point. The patient is admi tted to telemetry observation. ALLERGIES: NO KNOWN ALLERGIES. PAST MEDICAL HISTORY: 1. Chronic atrial fibrillation. 2. Hypertension. 3. Possibly recent TIA versus cerebrovascular accident. 4. Chronic low back pain with disk disease and peripheral neuropathy. 5. Reported history of breast cancer approximately 2 years ago, status post mastectomy and also edd motherapy and radiation therapy, it is unclear if the patient was compliant with treatment. PAST SURGICAL HISTORY: 1. Status post bilateral mastectomy. 2. Status post intussusception surgery as a child. 3. Status post skin tumor removal from her abdomen and her neck area. SOCIAL HISTORY: The patient is currently living at detention facility, she has been homeless for the past couple of weeks now. Prior to that she was living from [facility] since 08/2016 an d recently lost her brother to suicide approximately a couple of weeks ago. She denies alcohol use. She denies tobacco or IV drug use. Unfortunately, she also lost her employment 6 months ago and l ost income then. REVIEW OF SYSTEMS: As per HPI. OUTPATIENT MEDICATIONS: 1. Eliquis 5 mg p.o. b.i.d. 2. Cardizem-CD 120 mg p.o. daily. 3. Gabapentin 600 mg p.o. b.i.d. REVIEW OF SYSTEMS: As per HPI. PHYSICAL EXAMINATION: VITAL SIGNS: Temperature 98.6, heart rate of 97, but varies up to 171, respiratory rate of 18, bloo d pressure 134/101. Patient is saturating 100% on 2 to 3 liters nasal cannula. GENERAL: She is alert and oriented x4. She is in no acute distress. Mental status is at baseline. HEENT: Pupils are equally round and reactive to light. Extraocular muscles are intact. Anicteric sclerae. NECK: No JVD, no thyromegaly noted. HEART: Irregularly irregular; again, varies from rate in the 80s to 170. LUNGS: Clear to auscultation bilaterally. ABDOMEN: Soft, nontender, nondistended. Bowel sounds are present. EXTREMITIES: No edema, clubbing or cyanosis. NEUROLOGIC: Grossly intact. LABORATORY DATA: White blood cell count is 8.4, hemoglobin 13.9, hematocrit 40.9, platelet count of 223. Chemistry with a sodium of 143, potassium 3.9, chloride of 108, bicarbonate of 29, BUN 21, cr eatinine 1.01, glucose of 109, total calcium of 9.4. Cardiac enzymes are negative x1 with a troponi n of 0.017, total protein 5.6, albumin 3.3, triglycerides 61, cholesterol 119, HDL 47. This is on t he past admission a week ago. TSH was also normal then on 01/03/2017 at 0.844 and free T4 1.09. IN R is 1.14, PT of 14.6, PTT of 33.8. EKG is showing sinus rhythm; however, the rate is varying from a normal rate of 80s to tachycardia a nd a rate of 170. RADIOLOGICAL DATA: Chest x-ray shows no acute cardiopulmonary disease. ASSESSMENT AND PLAN: This is a 76-year-old female with: 1. Episode of chest pain. Cardiology has evaluated the patient already. This is not an ST elevati on myocardial infarction. At this point, troponin is negative. We will continue to trend the tropo mehnaz, continue Eliquis for now. The patient does have nitro paste in place which may not be necessar y. A 2D echocardiogram was already done last week. No need to repeat it, and patient is being foll owed by cardiology. Further workup will be done as needed. She does have chronic atrial fibrillati on and has currently tachybrady syndrome; therefore antiarrhythmics will be started per cardiology. 2. Chronic atrial fibrillation, currently tachybrady syndrome. Patient to be started on antiarrhyt hmics. I will continue her Eliquis for now. Her TSH, free T4 are within normal limits. That was a lready checked last week. Electrolytes are stable. 3. Hypertension. We will monitor her blood pressure on new medications. 4. Peripheral neuropathy with degenerative disk disease. Continue gabapentin. 5. History of breast cancer status post bilateral mastectomy, stable. 6. Prophylaxis. The patient already on Eliquis and will have her also on Pepcid for gastrointestin al prophylaxis. DISPOSITION: The patient is being admitted to telemetry observation for medication management and r ule out for acute coronary syndrome. Dictated By: EVIE ROBERTSON MD NK/NTS Conf#: [id number] DID#: [id number] CC: EVIE ROBERTSON MD;*End*
[2017-01-09 16:40] LABS: CREATINE KINASE 40 IU/L (23-200)
[2017-01-09 16:53] LABS: CK-MB 1.14 ng/ml (0.0-2.4)
[2017-01-09 16:56] LABS: TROPONIN-I < 0.012 ng/ml (0.00-0.12)
[2017-01-09] MEDS ORDERED: FLECAINIDE 50 MG TAB PO SCH (21:00)
[2017-01-09] MEDS: FAMOTIDINE 20 MG TAB PO SCH (21:31)
[2017-01-09] MEDS: APIXABAN 5 MG TABLET PO SCH (21:31)
[2017-01-09] MEDS: GABAPENTIN 300 MG CAP PO SCH (21:31)
[2017-01-09 21:52] VITALS: TEMP 98.1
[2017-01-09] MEDS ORDERED: AMIODARONE 150MG/D5W BOLUS 100 ML IV ONE (22:00)
[2017-01-09] MEDS ORDERED: AMIODARONE 900 MG in DEXTROSE 5% 482 ML IV SCH (22:10)
[2017-01-09 22:30] VITALS: Ht 160 cm; Wt 74.7 kg
[2017-01-09 22:43] LABS: CK-MB 1.13 ng/ml (0.0-2.4); TROPONIN-I 0.015 ng/ml (0.00-0.12)
[2017-01-10] VITALS (14 sets, daily range): BP systolic 108–187; BP diastolic 50–84; PULSE 54–64; RESP 18
[2017-01-10] MEDS ORDERED: oxyCODONE (CR) 10 MG TAB [oxyCONTIN] PO PRN (03:00)
[2017-01-10] MEDS: DIAZEPAM 5 MG TAB PO PRN ×2 (04:16→23:01)
[2017-01-10] MEDS: AMIODARONE 200 MG TAB PO SCH ×4 (04:17→20:29)
[2017-01-10] MEDS: APIXABAN 5 MG TABLET PO SCH ×2 (08:35→20:29)
[2017-01-10] MEDS: GABAPENTIN 300 MG CAP PO SCH ×2 (08:35→20:25)
[2017-01-10 08:42] LABS: CALCIUM 8.9 mg/dl (8.4-10.2); CREATININE 1.01 mg/dl (0.44-1.00); POTASSIUM 3.7 mmol/L (3.5-5.1)
[2017-01-10] MEDS ORDERED: oxyCODONE (CR) 10 MG TAB [oxyCONTIN] PO SCH (09:00)
[2017-01-10] MEDS ORDERED: ASPIRIN 81 MG TAB PO SCH (09:00)
[2017-01-10] MEDS ORDERED: AMIODARONE 200 MG TAB PO SCH (09:00)
--- NOTE | 2017-01-10 14:27 | PN ---
Date/Time of Note Date/Time of Note DATE: 01/10/17 TIME: 14:23 Assessment/Plan VTE Prophylaxis VTE Prophylaxis Intervention: other (on Eliquis ) Lines/Catheters IV Catheter Type (from Nrs): Saline Lock Urinary Cath still in place: No Assessment/Plan Assessment/Plan 76-year-old female with: 1. Episode of chest pain. CE negative A 2D echocardiogram was already done last week, no need to repeat it per Cardiology No chest pain currently. 2. Chronic atrial fibrillation, currently tachybrady syndrome, with episode of RVR overnight, per Cardio changed to Amiodarone for antiarrhythmics Continue Eliquis TSH, free T4 wnl. Electrolytes stable. 3. Hypertension. Monitor BP. 4. Peripheral neuropathy with degenerative disk disease. Continue gabapentin and also oxycodone added prn overnight. 5. History of breast cancer status post bilateral mastectomy, stable. Prophylaxis. On Eliquis and Pepcid for gastrointestinal prophylaxis. DISPOSITION: Telemetry observation for HR control. Subjective 24 Hr Interval Summary Free Text/Dictation Patient with episode of SVT overnight, back to SR and on Amiodarone Stable in SR and on po amio now Patient feels OK and VSS Exam/Review of Systems Vital Signs Vitals Vital Signs Date Time Temp Pulse Resp B/P Pulse Ox O2 Delivery O2 Flow Rate FiO2 01/10/17 12:20 57 01/10/17 11:46 98.6 18 182/80 94 01/09/17 21:52 Nasal Cannula 3.0 Intake and Output 01/09/17 01/09/17 01/10/17 15:00 23:00 07:00 Intake Total 300 ml Balance 300 ml Exam Constitutional: alert, oriented, well developed Respiratory: clear to auscultation, normal air movement Cardiovascular: nl pulses, regular rate and rhythm Gastrointestinal: non-tender, soft Musculoskeletal: nl extremities to inspection Extremities: normal pulses, other (no edema, clubbing or cyanosis) 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, nl mental status, nl speech, nl strength Results Result Diagram: 01/09/17 0848 01/10/17 0648 Results 24 hrs Laboratory Tests Test 01/09/17 16:10 01/09/17 21:58 01/10/17 06:48 Creatine Kinase 40 30 Creatine Kinase Index 2.9 3.8 Creatinine Kinase MB (Mass) 1.14 1.13 Troponin I < 0.012 0.015 Sodium Level 140 Potassium Level 3.7 Chloride Level 106 Carbon Dioxide Level 27 Anion Gap 11 Blood Urea Nitrogen 22 H Creatinine 1.01 H Glucose Level 89 Calcium Level 8.9 Magnesium Level 2.0 Medications Medications Current Medications Ondansetron HCl (Zofran Inj) 4 mg Q6H PRN IV NAUSEA AND/OR VOMITING; Start at 14:00 Nitroglycerin (Nitroglycerin (Sl Tab) 0.4 Mg) 1 tab Q5M PRN SL CHEST PAIN; Start 01/09/17 at 14:00 Acetaminophen (Tylenol Tab) 650 mg Q6H PRN PO PAIN LEVEL 1-3 OR FEVER Last administered on 01/09/17 21:55; Admin Dose 650 MG; Start 01/09/17 at 14:00 Docusate Sodium (Colace) 100 mg Q12H PRN PO CONSTIPATION; Start 01/09/17 at 14: 00 Magnesium Hydroxide (Milk Of Mag) 30 ml DAILY PRN PO CONSTIPATION; Start at 14:00 Bisacodyl (Dulcolax Supp) 10 mg DAILY PRN [place] CONSTIPATION; Start 01/09/17 at 14 :00 Famotidine (Pepcid) 20 mg QHS PO Last administered on 01/09/17 21:31; Admin Dose 20 MG; Start 01/09/17 at 21:00 Apixaban (Eliquis) 5 mg BID PO Last administered on 01/10/17 08:35; Admin Dose 5 MG; Start 01/09/17 at 21:00 Gabapentin (Neurontin) 600 mg BID PO Last administered on 01/10/17 08:35; Admin Dose 600 MG; Start 01/09/17 at 21:00 Trazodone HCl (Desyrel) 50 mg HS PO Last administered on 01/10/17 04:16; Admin Dose 50 MG; Start 01/10/17 at 21:00 Diazepam (Valium) 5 mg Q12H PRN PO ANXIETY Last administered on 01/10/17 04:16 ; Admin Dose 5 MG; Start 01/10/17 at 03:00 Amiodarone HCl (Cordarone) 400 mg TID PO Last administered on 01/10/17 12:22; Admin Dose 400 MG; Start 01/10/17 at 03:45 Oxycodone HCl (Roxicodone) 10 mg Q8H PRN PO PAIN; Start 01/10/17 at 12:30 EVIE ROBERTSON Jan 10, 2017 14:27
[2017-01-10] MEDS ORDERED: TRIA0.2521 PO (17:05)
[2017-01-10] MEDS ORDERED: TRAZ50TA18 PO (17:05)
[2017-01-10] MEDS ORDERED: thyroxine PO (17:05)
--- NOTE | 2017-01-10 17:36 | PN ---
Date/Time of Note Date/Time of Note DATE: 01/10/17 TIME: 17:27 Assessment/Plan VTE Prophylaxis VTE Prophylaxis Intervention: SCD's Lines/Catheters IV Catheter Type (from Nrsg): Saline Lock Urinary Cath still in place: No Assessment/Plan Chief Complaint/Hosp Course Patient is a 76-year-old female with hypertension who presents with chest pain. She was brought in by ambulance. She started with chest pain this morning at 6:20 AM was given nitroglycerin. The pain went away and came back at 6:25 AM and she was given nitroglycerin again. The pain went away and came back a third time and she was given nitroglycerin and this time the facility called 911. She was brought in by ambulance and was given aspirin nitroglycerin by paramedics. An EKG from the field showed a possible STEMI and a code STEMI was called from the field at 8:37 AM. She denies chest pain now. She denies shortness of breath. She said the pain was a dull ache across her chest prior to the nitroglycerin. Upon review of old medical records this is the patient's third visit to the ER since January 02, 2017. She is currently stable with no acute ischemia by ekg and nromal troponin #1. Problems: Assessment/Plan Tachy-Farzaneh Syndrome Atypical chest pain Paroxysmal aflutter/afib > nsr HTN -Given multiple visits and tachy farzaneh, will add amiodarone -Continue av blockade -On anticoagulation -If fails medical therpay, would consider AV Ablation with PPM vs afib ablation -off asa Subjective 24 Hr Interval Summary Free Text/Dictation The patient with no change Exam/Review of Systems Vital Signs Vitals Vital Signs Date Time Temp Pulse Resp B/P Pulse Ox O2 Delivery O2 Flow Rate FiO2 01/10/17 16:50 54 01/10/17 16:00 97.6 18 112/59 94 01/10/17 14:32 Room Air 01/09/17 21:52 3.0 Intake and Output 01/09/17 01/09/17 01/10/17 15:00 23:00 07:00 Intake Total 300 ml Balance 300 ml Results Result Diagram: 01/09/17 0848 01/10/17 0648 Results 24 hrs Laboratory Tests Test 01/09/17 21:58 01/10/17 06:48 Creatine Kinase 30 Creatine Kinase Index 3.8 Creatinine Kinase MB (Mass) 1.13 Troponin I 0.015 Sodium Level 140 Potassium Level 3.7 Chloride Level 106 Carbon Dioxide Level 27 Anion Gap 11 Blood Urea Nitrogen 22 H Creatinine 1.01 H Glucose Level 89 Calcium Level 8.9 Magnesium Level 2.0 Medications Medications Current Medications Ondansetron HCl (Zofran Inj) 4 mg Q6H PRN IV NAUSEA AND/OR VOMITING; Start at 14:00 Nitroglycerin (Nitroglycerin (Sl Tab) 0.4 Mg) 1 tab Q5M PRN SL CHEST PAIN; Start 01/09/17 at 14:00 Acetaminophen (Tylenol Tab) 650 mg Q6H PRN PO PAIN LEVEL 1-3 OR FEVER Last administered on 01/09/17 21:55; Admin Dose 650 MG; Start 01/09/17 at 14:00 Docusate Sodium (Colace) 100 mg Q12H PRN PO CONSTIPATION; Start 01/09/17 at 14: 00 Magnesium Hydroxide (Milk Of Mag) 30 ml DAILY PRN PO CONSTIPATION; Start at 14:00 Bisacodyl (Dulcolax Supp) 10 mg DAILY PRN [place] CONSTIPATION; Start 01/09/17 at 14 :00 Famotidine (Pepcid) 20 mg QHS PO Last administered on 01/09/17 21:31; Admin Dose 20 MG; Start 01/09/17 at 21:00 Apixaban (Eliquis) 5 mg BID PO Last administered on 01/10/17 08:35; Admin Dose 5 MG; Start 01/09/17 at 21:00 Gabapentin (Neurontin) 600 mg BID PO Last administered on 01/10/17 08:35; Admin Dose 600 MG; Start 01/09/17 at 21:00 Trazodone HCl (Desyrel) 50 mg HS PO Last administered on 01/10/17 04:16; Admin Dose 50 MG; Start 01/10/17 at 21:00 Diazepam (Valium) 5 mg Q12H PRN PO ANXIETY Last administered on 01/10/17 04:16 ; Admin Dose 5 MG; Start 01/10/17 at 03:00 Amiodarone HCl (Cordarone) 400 mg TID PO Last administered on 01/10/17 12:22; Admin Dose 400 MG; Start 01/10/17 at 03:45 Oxycodone HCl (Roxicodone) 10 mg Q8H PRN PO PAIN; Start 01/10/17 at 12:30 ROSELYN PAYAN MD Jan 10, 2017 17:36
[2017-01-10] MEDS: FAMOTIDINE 20 MG TAB PO SCH (20:29)
[2017-01-10] MEDS ORDERED: traZODone 50 MG TAB PO SCH (21:00)
[2017-01-10] MEDS: traZODone 50 MG TAB PO SCH (23:01)
[2017-01-11] VITALS (10 sets, daily range): BP systolic 126–163; BP diastolic 51–72; PULSE 50–65; RESP 18
[2017-01-11] MEDS: LEVOTHYROXINE 50 MCG TAB PO SCH (05:29)
[2017-01-11 07:56] LABS: ADD SCAN DIFF NO
[2017-01-11 08:06] LABS: BASOPHILS % 0.5 % (0.0-2.0); EOSINOPHILS # 0.3 10^3/ul (0.0-0.5); EOSINOPHILS % 3.6 % (0.0-7.0); HEMATOCRIT 40.1 % (37.0-47.0); HEMOGLOBIN 13.1 g/dl (12.0-16.0); LYMPHOCYTES # 1.6 10^3/ul (0.8-2.9); MEAN CORPUSCULAR HEMOGLOBIN 29.6 pg (29.0-33.0); MEAN CORPUSCULAR HGB CONC 32.7 g/dl (32.0-37.0); MEAN CORPUSCULAR VOLUME 90.7 fl (82.0-101.0); MEAN PLATELET VOLUME 10.7 fl (7.4-10.4); MONOCYTE # 0.9 10^3/ul (0.3-0.9); MONOCYTES % 10.8 % (0.0-11.0); NEUTROPHIL # 5.3 10^3/ul (1.6-7.5); NEUTROPHILS % 64.7 % (39.0-77.0); PLATELET COUNT 195 10^3/UL (140-415); RED BLOOD COUNT 4.42 10^6/ul (4.20-5.40); RED CELL DISTRIBUTION WIDTH 13.8 % (11.5-14.5); WHITE BLOOD COUNT 8.1 10^3/ul (4.8-10.8)
[2017-01-11 08:22] LABS: CREATININE 1.16 mg/dl (0.44-1.00); POTASSIUM 3.9 mmol/L (3.5-5.1)
[2017-01-11 08:25] LABS: MAGNESIUM 1.9 mg/dl (1.7-2.5); PHOSPHORUS 4.4 mg/dl (2.5-4.9)
[2017-01-11] MEDS: AMIODARONE 200 MG TAB PO SCH (09:44)
[2017-01-11] MEDS: GABAPENTIN 300 MG CAP PO SCH ×2 (09:44→20:42)
[2017-01-11] MEDS: APIXABAN 5 MG TABLET PO SCH ×2 (09:44→20:42)
[2017-01-11] MEDS: oxyCODONE 5 MG TAB PO PRN ×2 (09:47→17:55)
--- NOTE | 2017-01-11 11:40 | PN ---
Date/Time of Note Date/Time of Note DATE: 01/11/17 TIME: 11:24 Assessment/Plan VTE Prophylaxis VTE Prophylaxis Intervention: SCD's Lines/Catheters IV Catheter Type (from Nrs): Saline Lock Central line still needed: No Urinary Cath still in place: No Assessment/Plan Assessment/Plan 76-year-old female with afib/aflutter improving. 1. Episode of chest pain. CE negative A 2D echocardiogram was already done last week, no need to repeat it per Cardiology No chest pain currently. 2. Chronic atrial fibrillation, currently tachybrady syndrome, with episode of RVR overnight, per Cardio changed to Amiodarone for antiarrhythmics Continue Eliquis TSH, free T4 wnl. Electrolytes stable. 3. Hypertension. Monitor BP. 4. Peripheral neuropathy with degenerative disk disease. Continue gabapentin and also oxycodone added prn overnight. 5. History of breast cancer status post bilateral mastectomy, stable. 6. Depression: restart effexor. Prophylaxis. On Eliquis and Pepcid for gastrointestinal prophylaxis. DISPOSITION: Telemetry observation for HR control. Subjective 24 Hr Interval Summary Free Text/Dictation Complains of being depressed after her brother committed suicide about 2.5 weeks ago. No events overnight. Eyes: no complaints ENT: no complaints Respiratory: no complaints Cardiovascular: no complaints Gastrointestinal: no complaints Genitourinary: no complaints Musculoskeletal: no complaints Skin: no complaints Neurologic: no complaints Endocrine: no complaints Lymphatic: no complaints Psychological: depression Exam/Review of Systems Vital Signs Vitals Vital Signs Date Time Temp Pulse Resp B/P Pulse Ox O2 Delivery O2 Flow Rate FiO2 01/11/17 08:07 54 01/11/17 07:28 97.8 18 134/61 97 01/10/17 14:32 Room Air 01/09/17 21:52 3.0 Intake and Output 01/10/17 01/10/17 01/11/17 15:00 23:00 07:00 Intake Total 720 ml 650 ml Balance 720 ml 650 ml Exam Constitutional: alert, oriented Psych: depression Head: normocephalic Eyes: nl conjunctiva ENMT: nl external ears & nose Neck: supple Respiratory: clear to auscultation Cardiovascular: regular rate and rhythm Gastrointestinal: soft Extremities: normal pulses Results Result Diagram: 01/11/17 0716 01/11/17 0716 Results 24 hrs Laboratory Tests Test 01/11/17 07:16 White Blood Count 8.1 Red Blood Count 4.42 Hemoglobin 13.1 Hematocrit 40.1 Mean Corpuscular Volume 90.7 Mean Corpuscular Hemoglobin 29.6 Mean Corpuscular Hemoglobin Concent 32.7 Red Cell Distribution Width 13.8 Platelet Count 195 Mean Platelet Volume 10.7 H Neutrophils % 64.7 Lymphocytes % 20.0 Monocytes % 10.8 Eosinophils % 3.6 Basophils % 0.5 Nucleated Red Blood Cells % 0.0 Neutrophils # 5.3 Lymphocytes # 1.6 Monocytes # 0.9 Eosinophils # 0.3 Basophils # 0.0 Nucleated Red Blood Cells # 0.0 Sodium Level 139 Potassium Level 3.9 Chloride Level 105 Carbon Dioxide Level 27 Anion Gap 11 Blood Urea Nitrogen 27 H Creatinine 1.16 H Glucose Level 96 Calcium Level 9.0 Phosphorus Level 4.4 Magnesium Level 1.9 Medications Medications Current Medications Ondansetron HCl (Zofran Inj) 4 mg Q6H PRN IV NAUSEA AND/OR VOMITING; Start at 14:00 Nitroglycerin (Nitroglycerin (Sl Tab) 0.4 Mg) 1 tab Q5M PRN SL CHEST PAIN; Start 01/09/17 at 14:00 Acetaminophen (Tylenol Tab) 650 mg Q6H PRN PO PAIN LEVEL 1-3 OR FEVER Last administered on 01/09/17 21:55; Admin Dose 650 MG; Start 01/09/17 at 14:00 Docusate Sodium (Colace) 100 mg Q12H PRN PO CONSTIPATION; Start 01/09/17 at 14: 00 Magnesium Hydroxide (Milk Of Mag) 30 ml DAILY PRN PO CONSTIPATION; Start at 14:00 Bisacodyl (Dulcolax Supp) 10 mg DAILY PRN [place] CONSTIPATION; Start 01/09/17 at 14 :00 Famotidine (Pepcid) 20 mg QHS PO Last administered on 01/10/17 20:29; Admin Dose 20 MG; Start 01/09/17 at 21:00 Apixaban (Eliquis) 5 mg BID PO Last administered on 01/11/17 09:44; Admin Dose 5 MG; Start 01/09/17 at 21:00 Gabapentin (Neurontin) 600 mg BID PO Last administered on 01/11/17 09:44; Admin Dose 600 MG; Start 01/09/17 at 21:00 Diazepam (Valium) 5 mg Q12H PRN PO ANXIETY Last administered on 01/10/17 23:01 ; Admin Dose 5 MG; Start 01/10/17 at 03:00 Amiodarone HCl (Cordarone) 400 mg TID PO Last administered on 01/11/17 09:44; Admin Dose 400 MG; Start 01/10/17 at 03:45 Oxycodone HCl (Roxicodone) 10 mg Q8H PRN PO PAIN Last administered on 09:47; Admin Dose 10 MG; Start 01/10/17 at 12:30 Levothyroxine Sodium (Synthroid) 50 mcg DAILY@06 PO Last administered on 05:29; Admin Dose 50 MCG; Start 01/11/17 at 06:00 Trazodone HCl (Desyrel) 50 mg QHS PO Last administered on 01/10/17 23:01; Admin Dose 50 MG; Start 01/10/17 at 21:00 TEZ XAVIER MD Jan 11, 2017 11:40
--- NOTE | 2017-01-11 11:58 | PN ---
Date/Time of Note Date/Time of Note DATE: 01/11/17 TIME: 11:56 Assessment/Plan VTE Prophylaxis VTE Prophylaxis Intervention: SCD's Lines/Catheters IV Catheter Type (from Nrsg): Saline Lock Urinary Cath still in place: No Assessment/Plan Chief Complaint/Hosp Course Patient is a 76-year-old female with hypertension who presents with chest pain. She was brought in by ambulance. She started with chest pain this morning at 6:20 AM was given nitroglycerin. The pain went away and came back at 6:25 AM and she was given nitroglycerin again. The pain went away and came back a third time and she was given nitroglycerin and this time the facility called 911. She was brought in by ambulance and was given aspirin nitroglycerin by paramedics. An EKG from the field showed a possible STEMI and a code STEMI was called from the field at 8:37 AM. She denies chest pain now. She denies shortness of breath. She said the pain was a dull ache across her chest prior to the nitroglycerin. Upon review of old medical records this is the patient's third visit to the ER since January 02, 2017. She is currently stable with no acute ischemia by ekg and nromal troponin #1. 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 If she is off lexapro, will place her on amio mail messenger contractor to keep in nsr -Continue av blockade -On anticoagulation -If fails medical therpay, would consider AV Ablation with PPM vs afib ablation -off asa Subjective 24 Hr Interval Summary Free Text/Dictation the patient with no change Exam/Review of Systems Vital Signs Vitals Vital Signs Date Time Temp Pulse Resp B/P Pulse Ox O2 Delivery O2 Flow Rate FiO2 01/11/17 11:25 97.7 74 18 127/72 93 01/10/17 14:32 Room Air 01/09/17 21:52 3.0 Intake and Output 01/10/17 01/10/17 01/11/17 15:00 23:00 07:00 Intake Total 720 ml 650 ml Balance 720 ml 650 ml Results Result Diagram: 01/11/17 0716 01/11/17 0716 Results 24 hrs Laboratory Tests Test 01/11/17 07:16 White Blood Count 8.1 Red Blood Count 4.42 Hemoglobin 13.1 Hematocrit 40.1 Mean Corpuscular Volume 90.7 Mean Corpuscular Hemoglobin 29.6 Mean Corpuscular Hemoglobin Concent 32.7 Red Cell Distribution Width 13.8 Platelet Count 195 Mean Platelet Volume 10.7 H Neutrophils % 64.7 Lymphocytes % 20.0 Monocytes % 10.8 Eosinophils % 3.6 Basophils % 0.5 Nucleated Red Blood Cells % 0.0 Neutrophils # 5.3 Lymphocytes # 1.6 Monocytes # 0.9 Eosinophils # 0.3 Basophils # 0.0 Nucleated Red Blood Cells # 0.0 Sodium Level 139 Potassium Level 3.9 Chloride Level 105 Carbon Dioxide Level 27 Anion Gap 11 Blood Urea Nitrogen 27 H Creatinine 1.16 H Glucose Level 96 Calcium Level 9.0 Phosphorus Level 4.4 Magnesium Level 1.9 Medications Medications Current Medications Ondansetron HCl (Zofran Inj) 4 mg Q6H PRN IV NAUSEA AND/OR VOMITING; Start at 14:00 Nitroglycerin (Nitroglycerin (Sl Tab) 0.4 Mg) 1 tab Q5M PRN SL CHEST PAIN; Start 01/09/17 at 14:00 Acetaminophen (Tylenol Tab) 650 mg Q6H PRN PO PAIN LEVEL 1-3 OR FEVER Last administered on 01/09/17 21:55; Admin Dose 650 MG; Start 01/09/17 at 14:00 Docusate Sodium (Colace) 100 mg Q12H PRN PO CONSTIPATION; Start 01/09/17 at 14: 00 Magnesium Hydroxide (Milk Of Mag) 30 ml DAILY PRN PO CONSTIPATION; Start at 14:00 Bisacodyl (Dulcolax Supp) 10 mg DAILY PRN [place] CONSTIPATION; Start 01/09/17 at 14 :00 Famotidine (Pepcid) 20 mg QHS PO Last administered on 01/10/17 20:29; Admin Dose 20 MG; Start 01/09/17 at 21:00 Apixaban (Eliquis) 5 mg BID PO Last administered on 01/11/17 09:44; Admin Dose 5 MG; Start 01/09/17 at 21:00 Gabapentin (Neurontin) 600 mg BID PO Last administered on 01/11/17 09:44; Admin Dose 600 MG; Start 01/09/17 at 21:00 Diazepam (Valium) 5 mg Q12H PRN PO ANXIETY Last administered on 01/10/17 23:01 ; Admin Dose 5 MG; Start 01/10/17 at 03:00 Amiodarone HCl (Cordarone) 400 mg TID PO Last administered on 01/11/17 09:44; Admin Dose 400 MG; Start 01/10/17 at 03:45 Oxycodone HCl (Roxicodone) 10 mg Q8H PRN PO PAIN Last administered on 09:47; Admin Dose 10 MG; Start 01/10/17 at 12:30 Levothyroxine Sodium (Synthroid) 50 mcg DAILY@06 PO Last administered on 05:29; Admin Dose 50 MCG; Start 01/11/17 at 06:00 Trazodone HCl (Desyrel) 50 mg QHS PO Last administered on 01/10/17 23:01; Admin Dose 50 MG; Start 01/10/17 at 21:00 Venlafaxine HCl (Effexor) 150 mg BID PO ; Start 01/11/17 at 13:00 ROSELYN PAYAN MD Jan 11, 2017 11:57
[2017-01-11] MEDS: VENLAFAXINE 75 MG TABLET PO SCH ×2 (14:20→20:42)
[2017-01-11] MEDS: FAMOTIDINE 20 MG TAB PO SCH (20:42)
[2017-01-11] MEDS: traZODone 50 MG TAB PO SCH (20:42)
[2017-01-11] MEDS ORDERED: ALPRAZOLAM 1 MG TAB PO SCH (23:00)
[2017-01-11] MEDS ORDERED: ALPRAZOLAM 0.25 MG TAB PO PRN (23:00)
[2017-01-11] MEDS ORDERED: ALPRAZOLAM 0.25 MG TAB PO SCH (23:00)
[2017-01-11] MEDS ORDERED: ZOLPIDEM 5 MG TAB PO PRN (23:30)
[2017-01-11] MEDS: DILTIAZEM (CD) 120 MG CAP PO SCH (23:51)
[2017-01-12] VITALS (12 sets, daily range): BP systolic 110–166; BP diastolic 68–90; PULSE 62–150; RESP 18
[2017-01-12] MEDS: LEVOTHYROXINE 50 MCG TAB PO SCH (06:08)
[2017-01-12] MEDS ORDERED: DILTIAZEM (CD) 120 MG CAP PO SCH (09:00)
[2017-01-12] MEDS: VENLAFAXINE 75 MG TABLET PO SCH (09:03)
[2017-01-12] MEDS: APIXABAN 5 MG TABLET PO SCH (09:03)
[2017-01-12] MEDS: GABAPENTIN 300 MG CAP PO SCH (09:03)
[2017-01-12] MEDS: DILTIAZEM (CD) 120 MG CAP PO SCH (09:05)
[2017-01-12] MEDS: oxyCODONE 5 MG TAB PO PRN ×2 (09:06→17:45)
[2017-01-12] MEDS ORDERED: AMIODARONE 200 MG TAB PO SCH (12:00)
[2017-01-12] MEDS ORDERED: AMIO200T2 PO (14:57)
[2017-01-12] MEDS ORDERED: VENL75TA PO (14:57)
[2017-01-12] MEDS ORDERED: DOCU-216 PO (14:57)
--- NOTE | 2017-01-12 14:59 | PDOCDIS ---
Discharge Instructions DIAGNOSIS Discharge Diagnosis Atrial fibrillation Atrial flutter CONDITION Patient Condition: Fair HOME CARE INSTRUCTIONS: Diet Instructions: Low Fat /CholesterolSpecial Diet: Cardiac ACTIVITY: Activity Restrictions: Slowly Increase Activity Bathing Restrictions: Shower FOLLOW UP/APPOINTMENTS Follow-up Plan Follow-up with Dr. Padilla in 3-5 days. Follow-up with PCP in 1-2 weeks. TEZ XAVIER MD Jan 12, 2017 14:59
--- NOTE | 2017-01-12 16:55 | CONS ---
DATE OF ADMISSION: 01/09/2017 DATE OF CONSULTATION: 01/12/2017 TYPE OF CONSULTATION: Cardiac Electrophysiology. HISTORY OF PRESENT ILLNESS: Ms. Pinto was admitted approximately a week ago. At that time was fou nd to be in atrial fibrillation with rapid ventricular rate. She again presented with a complaint of chest pain and was found to be in atrial fibrillation with r apid ventricular rate. She was started on amiodarone and converted to sinus rhythm. Currently, she feels much better. CURRENT MEDICATIONS: 1. Amiodarone 200 mg b.i.d. 2. Diltiazem 120 mg daily. 3. Ambien. 4. Hydralazine. 5. Effexor. 6. Synthroid. 7. Trazodone. ____. PHYSICAL EXAMINATION: GENERAL: She is in no distress. VITAL SIGNS: Temperature 98.1, pulse currently 60 range today from 125 to 42. NECK: No jugular venous distention. LUNGS: Clear. CARDIAC: Regular rate and rhythm. ABDOMEN: Soft. EXTREMITIES: Reveal no edema. DIAGNOSTIC DATA: EKG reviewed. ASSESSMENT: The patient does appear to have periods consistent with typical atrial flutter and rapi d ventricular rate. At this time, I agree with anticoagulation given her significant CHADS-VASc of at least 2. I agree with amiodarone for the short term, at least in order to keep her in normal rhythm. If she does have recurrence, I would consider ablation for what appears to be typical atrial flutter. It i s also reasonable to refer her for outpatient atrial flutter ablation given the typical appearing na ture at times. Dictated By: AMANDA VILLALOBOS/DINESH Conf#: [id number] DID#: [id number]
--- NOTE | 2017-01-12 19:12 | DS ---
DATE OF ADMISSION: 01/09/2017 DATE OF DISCHARGE: 01/12/2017 DISCHARGE DIAGNOSES: 1. Atrial fibrillation with rapid ventricular response: resolved. The patient now in sinus rhythm . She is currently on Cardizem-CD 120 mg once daily and amiodarone 200 mg twice daily. 2. Atrial flutter: resolved, now in sinus rhythm. Plan as above. 3. Hypertension: stable. Continue Cardizem-CD 120 mg once daily. 4. Chronic low back pain with peripheral neuropathy: stable. Continue gabapentin as an outpatient . 5. Breast cancer. In remission status post mastectomy and chemotherapy as well as radiation. HOSPITAL COURSE: The patient is a 76-year-old female with hypertension, chronic atrial fibrillation who was admitted by my associate, Dr. Granger. [facility] facility and was r eported to have chest pain. She came in through EMS and the code STEMI was canceled at the time. B ecause the patient had an elevated CHADS score, she was placed on Cardizem and Eliquis. Throughout her hospitalization, the patient ultimately converted to sinus rhythm. Her heart rate was between 6 0 and 70. Overall, she is fairly well and not symptomatic. Dr. Walters and Dr. Barrientos consulted on the patient and made recommendations for medication management. As stated above, the patient conver andreina to sinus rhythm on the day of discharge. Given her multiple visits for tachybrady syndrome and if her medical therapy fails, Dr. Barrientos and Dr. Padilla stated that the patient should consider an AB ablation with PPM versus atrial fibrillation ablation. The patient was tolerating a cardiac diet and ambulating to the bathroom without any difficulty. Sh e will be going to prison facility for ongoing PT and OT as well as longer term placement. CONDITION ON DISCHARGE: Stable. DISPOSITION: Discharged to [facility]. DISCHARGE MEDICATIONS: 1. Amiodarone 200 mg p.o. twice daily. 2. Diltiazem CD 120 mg once daily. 3. Ambien 5 mg p.o. at bedtime p.r.n. insomnia. 4. Effexor 150 mg p.o. twice daily. 5. Levothyroxine 50 mcg once daily. 6. Trazodone 50 mg p.o. at bedtime for depression. 7. Eliquis 5 mg p.o. b.i.d. 8. Neurontin 600 mg p.o. b.i.d. FOLLOWUP VISITS: The patient is to follow up with Dr. Padilla in approximately 3 to 5 days for ongo ing medical management and reevaluation. The patient can also follow up with her primary care physi deisy in 1 to 2 weeks. Dictated By: TEZ MCLAUGHLIN/DINESH Conf#: [id number] DID#: [id number]
== END 2017-01-12 18:00 ==
LOC: E/R 08:39 → MS4 10:07
PROVIDERS: ADMIT Internal Medicine; ATTEND Internal Medicine
DX: I48.0 Paroxysmal atrial fibrillation (principal); I48.92 Unspecified atrial flutter; R07.89 Other chest pain; I10 Essential (primary) hypertension; G89.29 Other chronic pain; M54.5 Low back pain; G62.9 Polyneuropathy, unspecified; F32.9 Major depressive disorder, single episode, unspecified; Z79.01 Long term (current) use of anticoagulants; Z85.3 Personal history of malignant neoplasm of breast; Z92.21 Personal history of antineoplastic chemotherapy; Z92.3 Personal history of irradiation; Z82.49 Family history of ischemic heart disease and other diseases of the circulatory system
CPT/HCPCS: 36415; 71010; 80048; 82550; 82553; 83735; 84100; 84484; 85025; 85610; 85730; 93005; 96374; 99291; G0378; J0282; J7060